=== PATIENT | female | born 1995 | race Caucasian/White ===

== ENCOUNTER → 2016-12-24 | Outpatient (CLI) | payer OTHER ==
[~2016-12-24] MED LIST: ALDACTONE50 MG PO; CEFTIN500 MG PO; CIPRO 500MG TA500 MG PO; CYCLAFEM 1/35 31 TAB PO; PAXIL 30MG30 MG PO
== END ==
LOC: BHSO 12:58
DX: F33.1 Major depressive disorder, recurrent, moderate (principal)
CPT/HCPCS: 90791-AI

== ENCOUNTER → 2017-01-28 | Outpatient (CLI) | payer OTHER | LOC: BHSO 14:18 | DX: F33.1 Major depressive disorder, recurrent, moderate (principal) ==

== ENCOUNTER → 2017-03-31 | Outpatient (CLI) | payer OTHER | LOC: BHSO 07:56 | DX: F33.42 Major depressive disorder, recurrent, in full remission (principal) ==

== ENCOUNTER → 2017-06-22 | Outpatient (CLI) | payer OTHER | LOC: BHSO 14:19 | DX: F33.42 Major depressive disorder, recurrent, in full remission (principal) ==

== ENCOUNTER → 2017-08-31 | Outpatient (CLI) | payer OTHER | LOC: BHSO 13:58 | DX: F41.1 Generalized anxiety disorder (principal) | CPT/HCPCS: G0463 ==

== ENCOUNTER → 2018-02-13 | Outpatient (CLI) | payer OTHER | LOC: BHSO 08:36 | DX: F33.42 Major depressive disorder, recurrent, in full remission (principal) | CPT/HCPCS: G0463 ==

== ENCOUNTER → 2018-10-02 | Outpatient (CLI) | payer OTHER | LOC: BHSO 08:58 | DX: F33.42 Major depressive disorder, recurrent, in full remission (principal) | CPT/HCPCS: G0463 ==